=== PATIENT | female | born 1995 | race Caucasian/White ===

== ENCOUNTER → 2018-11-10 14:53 | Outpatient (CLI) | payer MEDICAID, SELFPAY ==
[2018-11-10 13:43] VITALS: BMI 31.9
[2018-11-10 16:48] LABS: Absolute Lymphocyte Count 2.76 X10^3/uL (0.83-4.51); Absolute Neutrophil Count 7.3 X10^3/uL (2.0-7.7); Basophil# 0.03 X10^3/uL; Basophil% 0.3 % (0-1); Eosinophil# 0.04 X10^3/uL; Eosinophils% 0.4 % (0-5); Hematocrit 38.9 % (37-47); Hemoglobin 12.7 g/dL (12.0-15.0); Lymphocyte # 2.76 X10^3/ul (4.0); Lymphocyte % 25.4 % (19-41); Mean Corp Hgb Conc 32.6 g/dL (32-36); Mean Corpuscular Hgb 29.4 pg (27.0-32.0); Mean Platelet Vol. 10.9 fl (6.2-12.0); Monocyte# 0.71 X10^3/uL; Monocyte% 6.5 % (0-10); NRBC Flagged by Analyzer 0 % (0-5); Neutrophil # 7.29 X10^3/uL (2.7-7.7); Neutrophil % 66.9 % (47-70); Platelet Count 270 K/mm3 (150-450); RBC Distribution Width CV 11.9 % (11.6-14.6); RBC Distribution Width SD 39.2 fl (35.1-43.9); Red Blood Count 4.32 M/mm3 (4.2-5.4); White Blood Count 10.9 K/mm3 (4.4-11.0)
[2018-11-10 16:55] LABS: Glucose Challenge Gest 1H 50g 105 mg/dL (70-140)
[2018-11-10 17:02] LABS: Chlamydia Trachomatis by PCR POSITIVE (Negative); Neisserai gonorrhoeae by PCR Negative (Negative); Probe Check PASS; Sample Adequacy Control PASS; Specimen Processing Control PASS
[2018-11-10 17:53] LABS: HIV - WCH Non-Reactive (Nonreactive); Rubella IgG 76.8 IU/mL
[2018-11-15 12:45] LABS: HPV Reflexed? NOT INDICATED
[2018-11-17 02:39] LABS: Rapid Plasmin Reagin (RPR) NONREACTIVE (NONREACTIVE)
== END ==
PROVIDERS: Referring Provider Obstetrics & Gynecology; Visit Provider Obstetrics & Gynecology
DX: Z34.81 Encounter for supervision of other normal pregnancy, first trimester (principal); Z31.430 Encounter of female for testing for genetic disease carrier status for procreative management; Z12.4 Encounter for screening for malignant neoplasm of cervix
CPT/HCPCS: 36415; 82950; 85025; 86592; 86703; 86762; 86850; 86900; 86901; 87086; 87491; 87591; 87624; 88175; G0145

== ENCOUNTER 2018-12-02 20:24 | Emergency (ER) | payer MEDICAID, SELFPAY ==
[2018-11-10 13:43] VITALS: BMI 31.9
[2018-12-02 20:25] VITALS: BP 119/53; PULSE 95; RESP 15; TEMP 36.7; O2SAT 100; BMI 33.7
[2018-12-02] MEDS: Famotidine 20 MG Tablet PO (21:17)
[2018-12-02 21:26] LABS: Absolute Lymphocyte Count 2.36 X10^3/uL (0.83-4.51); Absolute Neutrophil Count 9.9 X10^3/uL (2.0-7.7); Basophil# 0.04 X10^3/uL; Basophil% 0.3 % (0-1); Eosinophil# 0.06 X10^3/uL; Eosinophils% 0.5 % (0-5); Hematocrit 39.4 % (37-47); Hemoglobin 13.2 g/dL (12.0-15.0); Lymphocyte # 2.36 X10^3/ul (4.0); Lymphocyte % 17.9 % (19-41); Mean Corp Hgb Conc 33.5 g/dL (32-36); Mean Corpuscular Hgb 30.1 pg (27.0-32.0); Mean Corpuscular Volume 89.7 fL (81-99); Mean Platelet Vol. 9.9 fl (6.2-12.0); Monocyte# 0.74 X10^3/uL; Monocyte% 5.6 % (0-10); NRBC Flagged by Analyzer 0 % (0-5); Neutrophil # 9.88 X10^3/uL (2.7-7.7); Neutrophil % 75.1 % (47-70); Platelet Count 253 K/mm3 (150-450); RBC Distribution Width CV 11.9 % (11.6-14.6); RBC Distribution Width SD 39.1 fl (35.1-43.9); Red Blood Count 4.39 M/mm3 (4.2-5.4); White Blood Count 13.2 K/mm3 (4.4-11.0)
[2018-12-02 21:28] LABS: Bacteria 0 SEEN /hpf (None Seen); Mucous, Urine 0 SEEN /hpf (<or=2+); Red Blood Cells-Urine 0 SEEN /hpf (0-5); White Blood Cells 0 SEEN /hpf (0-5)
[2018-12-02 21:29] LABS: Color, Urine Yellow (Yellow); Glucose, Dipstick Normal (Normal); Ketone-Dipstick Negative (Negative); Leukocyte Esterase-Dipstick Negative /ul (Negative); Nitrite-Dipstick Negative (Negative); Occult Blood-Urine Negative /ul (Negative); Protein-Dipstick Negative (Negative); Specific Gravity, Urine 1.015 (1.002-1.030); Urine Bilirubin Dipstick Negative (Negative); Urine Clarity Clear (Clear); Urine Urobilinogen Normal (Normal)
[2018-12-02 21:41] LABS: AST(SGOT) 23 U/L (15-37); Alanine Aminotransfer ALT/SGPT 43 U/L (13-56); Albumin, Serum 3.8 g/dL (3.2-5.0); Alkaline Phosphatase 48 U/L (45-117); Anion Gap 7 (5-15); BUN 8 mg/dL (7-18); BUN/Creat Ratio 15.4 RATIO (10-20); Calcium,Total 9.6 mg/dL (8.5-10.1); Chloride 105 mmol/L (98-107); Creatinine, Serum 0.52 mg/dL (0.55-1.02); EST Glomerular Filtration Rate 154 mL/min (>60); Est Glom Filt Rate - Afr Amer 186 mL/min (>60); Estimated Creatinine Clearance 162.23 ml/min; Globulin 3.9 g/dL (2.2-4.2); Glucose 99 mg/dL (74-106); Lipase 84 U/L (73-393); Potassium 3.4 mmol/L (3.5-5.1); Protein, Total 7.7 g/dL (6.4-8.2); Sodium Level 138 mmol/L (136-145)
[2018-12-02 21:42] LABS: Squamous Epithelial Cells - UA 0-5 SEEN /hpf (5-10)
--- NOTE | 2018-12-02 22:59 | ED.VIS.GEN ---
History of Present Illness Chief Complaint: Abd Pain Informant: Patient Onset: Today Context: Sudden Onset Timing: Intermittent Current Severity: Mild Maximum Severity: Severe Narrative: Patient is a 23-year-old female currently 13-1/2 weeks gestation with her first presenting with sudden onset of abdominal pain. Patient states after she had dinner she had sharp pain in her left upper quadrant. Patient denies any radiation. It came and went in waves. Lasting 4-minute at time. Patient states the pain doubled her over. She denies any associated nausea or vomiting. She states her last bowel movement was 2 days ago. She states she has been constipated. She denies any urinary symptoms. She denies any abnormal vaginal bleeding or discharge. Patient was concerned these might be contractions. She states that she had a grilled cheese and apple for dinner. She denies any history of abdominal surgery. She denies any other complaints at this time. She did not take any medications prior to arrival. Past Medical History - Allergies and Home Meds Allergies/Adverse Reactions: Allergies amoxicillin [From Augmentin] Allergy (Mild, Verified 12/02/18 20:29) Unknown clavulanic acid [From Augmentin] Allergy (Mild, Verified 12/02/18 20:29) Unknown Primary Care Physician: Cassie Jamison MD [Primary Care Provider] - Past Medical History: None Surgical History: noncontributory Smoking Status: Never smoker Review of Systems All systems negative except as indicated Gastrointestinal: Reports: Abdominal pain, Constipation Physical Exam Vital Signs/Narrative: Vital Signs Temp Pulse Resp BP Pulse Ox 12/02/18 20:25 98.0 F 95 15 119/53 L 100 General: Well nourished, Well developed, No Acute Distress Head: Normocephalic, Atraumatic Eyes: Perrl, EOMI ENT: Moist mucous membranes, No rhinorrhea Neck: Supple, Nontender Cardiovascular: Regular rate, Regular rhythm, No murmurs Respiratory: No distress, CTA bilaterally, Chest nontender Abdomen: Soft, Nontender, Nondistended, Normal bowel sounds, - - No palpable uterus. Negative for: Guarding Back: Nontender, Normal Inspection. Negative for: CVA tenderness Extremities: Nontender, No edema Skin: Normal color, No rash Neurological: Alert, Oriented x3, Cranial nerves II-XII grossly intact, Normal Strength, Normal Sensation Psychological: Normal affect, Normal Mood Diagnostic/Tx/Re-eval Laboratory Data 12/02/18 12/02/18 12/02/18 21:20 21:20 21:23 WBC 13.2 H RBC 4.39 Hgb 13.2 Hct 39.4 MCV 89.7 MCH 30.1 MCHC 33.5 RDW Std Deviation 39.1 RDW Coeff of Bartolo 11.9 Plt Count 253 MPV 9.9 Immature Gran % (Auto) 0.600 Neut % (Auto) 75.1 H Lymph % (Auto) 17.9 L Kendall % (Auto) 5.6 Eos % (Auto) 0.5 Baso % (Auto) 0.3 Absolute Neuts (auto) 9.9 H Absolute Lymphs (auto) 2.36 Nucleated RBC % 0 Sodium 138 Potassium 3.4 L Chloride 105 Carbon Dioxide 26.0 Anion Gap 7 BUN 8 Creatinine 0.52 L Estim Creat Clear Calc 162.23 Est GFR (MDRD) Af Amer 186 Est GFR (MDRD) Non-Af 154 BUN/Creatinine Ratio 15.4 Glucose 99 Calcium 9.6 Total Bilirubin 0.40 AST 23 ALT 43 Alkaline Phosphatase 48 Total Protein 7.7 Albumin 3.8 Globulin 3.9 Albumin/Globulin Ratio 1.0 Lipase 84 Urine Color Yellow Urine Clarity Clear Urine pH 6.0 Ur Specific [employer] 1.015 Urine Protein Negative Urine Glucose (UA) Normal Urine Ketones Negative Urine Occult Blood Negative Urine Nitrite Negative Urine Bilirubin Negative Urine Urobilinogen Normal Ur Leukocyte Esterase Negative Urine RBC 0 SEEN Urine WBC 0 SEEN Ur Squamous Epith Cells 0-5 SEEN Urine Bacteria 0 SEEN Urine Mucus 0 SEEN - Medical Decision Making She is evaluated for sudden onset of left upper quadrant abdominal pain. She appears nontoxic and in no acute distress. She does not have any pain during my evaluation. Her abdominal exam is benign. CBC, CMP, lipase and UA are all normal. heart tones are not checked as patient is only 13 weeks and still nonviable. She is not complain of any lower abdominal pain or vaginal bleeding. Patient is given a dose of Pepcid in the emergency room. On reevaluation she does have improvement of her symptoms. She continues to have a benign abdominal exam. Patient is counseled that this might be a gastritis, ulcer or gas pains. Patient is encouraged to increase her fluid intake and try prune juice as she has not had a bowel movement in a couple days. In addition she is counseled that she can take either Tums or Mylanta as needed for reflux symptoms. She has an appointment to follow-up with her SIGN LANGUAGE TEACHER, Dr. Bakari Mendieta next week. She is encouraged to keep this. She is counseled on signs and symptoms requiring return to emergency room. Patient discharged home in improved and stable condition. ED Disposition - Plan for ED Patient: Disposition: Home or Assisted Living Diagnosis: Left upper quadrant abdominal pain affecting Instructions: ABDOMINAL PAIN, Unknown Cause, (Female) Referrals: Cassie Jamison MD [Primary Care Provider] - Additional Instructions: Make sure you follow-up with your SIGN LANGUAGE TEACHER. You may take Tums or Maalox as needed. Increase your water and take and try drinking prune juice as needed for constipation. Return to the emergency room if you have worsening or changing symptoms.
[2018-12-02 23:12] VITALS: RESP 16
== END 2018-12-02 23:13 | disposition home or self-care (01) ==
PROVIDERS: Emergency Provider Emergency Medicine; Family Provider Obstetrics & Gynecology; PCP Obstetrics & Gynecology
DX: O26.891 Other specified pregnancy related conditions, first trimester (principal); R10.12 Left upper quadrant pain; Z3A.13 13 weeks gestation of pregnancy
CPT/HCPCS: 80053; 81001; 83690; 85025; 99284; A4216

== ENCOUNTER → 2018-12-07 17:17 | Outpatient (CLI) | payer MEDICAID, SELFPAY ==
[2018-12-07 16:31] VITALS: BMI 33.7
[2018-12-07 21:29] LABS: Chlamydia Trachomatis by PCR Negative (Negative); Neisserai gonorrhoeae by PCR Negative (Negative); Probe Check PASS; Sample Adequacy Control PASS; Specimen Processing Control PASS
[2018-12-11 13:07] LABS: HSV 1 IgG < 0.91 index (0.00-0.90); HSV 2 IgG < 0.91 index (0.00-0.90)
== END ==
PROVIDERS: Referring Provider Obstetrics & Gynecology; Visit Provider Obstetrics & Gynecology
DX: O98.819 Other maternal infectious and parasitic diseases complicating pregnancy, unspecified trimester (principal); A74.9 Chlamydial infection, unspecified
CPT/HCPCS: 36415; 86695; 86696; 87491; 87591

== ENCOUNTER → 2019-01-05 17:04 | Outpatient (CLI) | payer MEDICAID, SELFPAY ==
[2019-01-05 14:50] VITALS: BMI 33.7
== END ==
PROVIDERS: Referring Provider Nurse Practitioner Women's Health; Visit Provider Nurse Practitioner Women's Health
DX: R30.0 Dysuria (principal)
CPT/HCPCS: 87086

== ENCOUNTER → 2019-03-09 14:55 | Outpatient (CLI) | payer MEDICAID, SELFPAY ==
[2019-03-02 10:42] VITALS: BMI 33.7
[2019-03-09 16:23] LABS: Absolute Lymphocyte Count 2.18 X10^3/uL (0.83-4.51); Absolute Neutrophil Count 9.8 X10^3/uL (2.0-7.7); Basophil# 0.03 X10^3/uL; Basophil% 0.2 % (0-1); Eosinophil# 0.14 X10^3/uL; Eosinophils% 1.1 % (0-5); Hematocrit 33.9 % (37-47); Lymphocyte # 2.18 X10^3/ul (4.0); Lymphocyte % 16.6 % (19-41); Mean Corp Hgb Conc 32.4 g/dL (32-36); Mean Corpuscular Hgb 30.1 pg (27.0-32.0); Mean Corpuscular Volume 92.9 fL (81-99); Mean Platelet Vol. 10.5 fl (6.2-12.0); Monocyte# 0.81 X10^3/uL; Monocyte% 6.2 % (0-10); NRBC Flagged by Analyzer 0 % (0-5); Neutrophil # 9.82 X10^3/uL (2.7-7.7); Neutrophil % 74.5 % (47-70); Platelet Count 257 K/mm3 (150-450); RBC Distribution Width CV 12.1 % (11.6-14.6); RBC Distribution Width SD 41.4 fl (35.1-43.9); Red Blood Count 3.65 M/mm3 (4.2-5.4); White Blood Count 13.2 K/mm3 (4.4-11.0)
[2019-03-09 16:48] LABS: Glucose Challenge Gest 1H 50g 90 mg/dL (70-140)
[2019-03-12 10:29] LABS: Hepatitis B Surface Antigen Non-Reactive (Nonreactive); Hepatitis C Antibody Non-Reactive (Nonreactive)
== END ==
PROVIDERS: Referring Provider Obstetrics & Gynecology; Visit Provider Obstetrics & Gynecology
DX: Z34.02 Encounter for supervision of normal first pregnancy, second trimester (principal)
CPT/HCPCS: 36415; 82950; 85025; 86803; 87340

== ENCOUNTER → 2019-05-11 17:51 | Outpatient (CLI) | payer MEDICAID, SELFPAY ==
[2019-05-11 15:36] VITALS: BMI 33.7
[2019-05-11 20:00] LABS: Chlamydia Trachomatis by PCR Negative (Negative); Neisserai gonorrhoeae by PCR Negative (Negative)
[2019-05-11 20:01] LABS: Probe Check PASS; Sample Adequacy Control PASS; Specimen Processing Control PASS
== END ==
PROVIDERS: Visit Provider Obstetrics & Gynecology
DX: O98.819 Other maternal infectious and parasitic diseases complicating pregnancy, unspecified trimester (principal); A74.9 Chlamydial infection, unspecified; Z3A.00 Weeks of gestation of pregnancy not specified
CPT/HCPCS: 87081; 87491; 87591

== ENCOUNTER 2019-05-15 21:52 | Outpatient (CLI) | payer MEDICAID, SELFPAY ==
[2019-05-11 15:36] VITALS: BMI 33.7
[2019-05-15 22:03] VITALS: BP 125/63; PULSE 78
[2019-05-15 22:05] VITALS: TEMP 37
[2019-05-15 22:24] VITALS: BMI 40.3
[2019-05-15 22:42] VITALS: PULSE 74; O2SAT 96
[2019-05-15 22:45] LABS: Color, Urine Yellow (Yellow); Glucose, Dipstick Normal (Normal); Ketone-Dipstick Negative (Negative); Leukocyte Esterase-Dipstick Negative /ul (Negative); Nitrite-Dipstick Negative (Negative); Occult Blood-Urine 25 /ul (Negative); Protein-Dipstick Negative (Negative); Specific Gravity, Urine 1.015 (1.002-1.030); Urine Bilirubin Dipstick Negative (Negative); Urine Clarity Clear (Clear); Urine Urobilinogen Normal (Normal); Urine pH 6.5 (5.0 - 8.0)
[2019-05-15 22:45] LABS: ROM Internal Control Test YES-OK TO RESULT pt. (Internal QC); ROM Patient Test Negative (Negative)
[2019-05-15 22:56] LABS: Color, Urine Yellow (Yellow); Glucose, Dipstick Normal (Normal); Mucous, Urine 0 SEEN /hpf (<or=2+); Urine Bilirubin Dipstick Negative (Negative); Urine Clarity Clear (Clear); White Blood Cells 0 SEEN /hpf (0-5)
[2019-05-15 22:57] LABS: Ketone-Dipstick Negative (Negative); Leukocyte Esterase-Dipstick Negative /ul (Negative); Nitrite-Dipstick Negative (Negative); Occult Blood-Urine 25 /ul (Negative); Protein-Dipstick Negative (Negative); Specific Gravity, Urine 1.015 (1.002-1.030); Urine Urobilinogen Normal (Normal); Urine pH 6.5 (5.0 - 8.0)
[2019-05-15 23:01] LABS: Bacteria RARE /hpf (None Seen); Red Blood Cells-Urine 0-5 SEEN /hpf (0-5); Squamous Epithelial Cells - UA 0-5 SEEN /hpf (5-10)
--- NOTE | 2019-05-16 13:05 | OB.TRI.PN ---
Progress Notes Date of Service: 05/16/19 Progress Note: FHT: 140 Moderate variability reactive no decelerations category I tracing Smoke Rise: no regular Contractions patient presents for questionable ROM, false labor dc home fu as scheduled Laboratory Studies: Laboratory Tests 05/15/19 05/15/19 05/15/19 Range/Units 22:35 22:35 22:15 Urine Color Yellow Yellow (Yellow) Urine Clarity Clear Clear (Clear) Urine pH 6.5 6.5 (5.0 - 8.0) Ur Specific [place] 1.015 1.015 (1.002-1.030) Urine Protein Negative Negative (Negative) mg/dl Urine Glucose (UA) Normal Normal (Normal) mg/dl Urine Ketones Negative Negative (Negative) mg/dl Urine Occult Blood 25 H 25 H (Negative) /ul Urine Nitrite Negative Negative (Negative) Urine Bilirubin Negative Negative (Negative) mg/dL Urine Urobilinogen Normal Normal (Normal) mg/dl Ur Leukocyte Esterase Negative Negative (Negative) /ul Urine RBC 0-5 SEEN (0-5) /hpf Urine WBC 0 SEEN (0-5) /hpf Ur Squamous Epith Cells 0-5 SEEN (5-10) /hpf Urine Bacteria RARE (None Seen) /hpf Urine Mucus 0 SEEN (<or=2+) /hpf Vag Amniotic Fld Detect Negative (Negative) Multi Select Codes - Urinary/Genital Urinary/Genital CPT Codes: 85563-69 non-stress test Interp
== END 2019-05-15 23:11 | disposition home or self-care (01) ==
LOC: WPOUT 21:55 → OBT 21:56
PROVIDERS: Visit Provider Obstetrics & Gynecology
DX: O47.9 False labor, unspecified (principal); Z3A.00 Weeks of gestation of pregnancy not specified
CPT/HCPCS: 59025; 59050; 81001; 81002; 84112; 94760; 99218; G0378

== ENCOUNTER 2019-05-30 05:20 | Inpatient (IN) | payer MEDICAID, SELFPAY ==
[2019-04-23 14:54] VITALS: BMI 33.7
[2019-05-24 14:08] VITALS: BMI 40.3
[2019-05-29 23:56] VITALS: BMI 40.3
[2019-05-30] VITALS (60 sets, daily range): BP systolic 107–129; BP diastolic 55–84; PULSE 65–126; TEMP 36.2–37.6; O2SAT 93–100
[2019-05-30] MEDS: Lactated Ringers 1,000 ML 999 ML IV (03:15)
[2019-05-30 03:26] LABS: Absolute Lymphocyte Count 3.01 X10^3/uL (0.83-4.51); Absolute Neutrophil Count 9.8 X10^3/uL (2.0-7.7); Basophil# 0.04 X10^3/uL; Basophil% 0.3 % (0-1); Eosinophil# 0.07 X10^3/uL; Eosinophils% 0.5 % (0-5); Hematocrit 37.1 % (37-47); Hemoglobin 12.2 g/dL (12.0-15.0); Lymphocyte # 3.01 X10^3/ul (4.0); Lymphocyte % 21.5 % (19-41); Mean Corp Hgb Conc 32.9 g/dL (32-36); Mean Corpuscular Hgb 30.3 pg (27.0-32.0); Mean Corpuscular Volume 92.1 fL (81-99); Mean Platelet Vol. 10.6 fl (6.2-12.0); Monocyte% 6.4 % (0-10); NRBC Flagged by Analyzer 0 % (0-5); Neutrophil # 9.84 X10^3/uL (2.7-7.7); Neutrophil % 70.2 % (47-70); Platelet Count 235 K/mm3 (150-450); RBC Distribution Width CV 13.2 % (11.6-14.6); RBC Distribution Width SD 43.8 fl (35.1-43.9); Red Blood Count 4.03 M/mm3 (4.2-5.4)
[2019-05-30] MEDS: Lactated Ringers 1,000 ML 50 ML IV (06:30)
[2019-05-30] MEDS: Oxytocin 30 units/NS 500 ml 30 UNITS/500 ML IV.SOLN IV (06:30)
[2019-05-30] MEDS: Lactated Ringers 500 ML 999 ML IV ×2 (08:55→14:40)
[2019-05-30] MEDS: fentaNYL-bupivacaine (epidural) 100 ML BAG EPIDURAL ×3 (09:51→19:04)
[2019-05-30] MEDS: Lactated Ringers 1,000 ML 200 ML IV ×2 (12:47→18:16)
[2019-05-30] MEDS: Oxytocin 30 units/NS 500 ml 30 UNITS/500 ML IV.SOLN 334 UNITS IV (20:18)
--- NOTE | 2019-05-30 20:40 | HP.PCM_ITS ---
- Problem List (1) Low grade squamous intraepithelial lesion (LGSIL) Status: Acute Comment: repeat pap at [facility] (2) Chlamydia infection affecting Status: Acute Comment: treated 11/14/18. JACKY neg. (3) Depression affecting Status: Acute Comment: zoloft 100mg, refer for counseling. (4) Obesity affecting Status: Acute Qualifiers: Comment: 1 hour glucola given at NOB, healthy weight ggain encouraged (5) Supervision of normal Status: Acute Qualifiers: Comment: PRR RAMON 06/06/2019 girl Arilynn FOB not involved (6) Status: Acute Qualifiers: Comment: NIPT-low risk and Carrier- negative. declined afp. anatomy US normal History Date of Admission: 05/30/19 Final RAMON: 06/06/19 Gestational age: 39 Weeks and 0 Days History of this : This is a 23 year-old, G 1P0, at 39 weeks gestational age presents in early transitional labor. She had questionable late decelerations and therefore the decision was made to keep and induce/augment labor. She admits regular contractions with no vaginal bleeding or loss of fluid and admits good movement. Medical History: Medical History (Last Reviewed 05/24/19 @ 14:07 by Elham Gutierrez) Boil of buttock L02.32 Surgical History: Surgical History (Last Reviewed 05/24/19 @ 14:07 by Elham Gutierrez) Hx of appendectomy Z90.49 Allergies amoxicillin [From Augmentin] Allergy (Mild, Verified 05/24/19 14:07) Rash clavulanic acid [From Augmentin] Allergy (Mild, Verified 05/24/19 14:07) Rash Home Medications: Home Medications vitamin no.76-iron,carbonyl 29 mg iron-folic acid 1 mg tablet 1 tab PO DAILY 11/10/18 Sertraline HCl [Zoloft] 100 mg PO QDAY 05/15/19 Smoking Status: Former smoker Alcohol: None Number of Fetus(es): 1 NST - FHR Rate Baby A Baseline: 130 Variability:: Moderate Accelerations:: 15 x 15 Decelerations:: Early, Late NST Reactive:: Yes FHR Category:: Category II Uterine Activity:: q 2-5 History Past Pregnancies: Past Pregnancies Delivery Date Name GA/ Weeks Outcome Route Wt Sex Labor Length Anesthesia Delivery Location Provider FOB Labs: Mom's Labs & Results 05/30/19 05/30/19 00:31 00:31 WBC 14.0 H RBC 4.03 L Hgb 12.2 Hct 37.1 MCV 92.1 MCH 30.3 MCHC 32.9 RDW Std Deviation 43.8 RDW Coeff of Bartolo 13.2 Plt Count 235 MPV 10.6 Immature Gran % (Auto) 1.100 H Neut % (Auto) 70.2 H Lymph % (Auto) 21.5 Carter % (Auto) 6.4 Eos % (Auto) 0.5 Baso % (Auto) 0.3 Absolute Neuts (auto) 9.8 H Absolute Lymphs (auto) 3.01 Nucleated RBC % 0 Blood Type A POSITIVE Antibody Screen NEGATIVE Course Did the patient receive Yes care? Labs Blood Type: A RH: POSITIVE RPR/VDRL/Syphilis Nonreactive Rubella status Immune HbSAg Negative Date Done: 03/09/19 Chlamydia Negative Gonorrhea Negative HIV/AIDS Non-Reactive Group B Strep: Negative Current Obstetrical History Gestational Diabetes No Incompetent Cervix No Infertility No IUGR No Macrosomia No Hypertension/Pre-eclampsia No Placenta Previa/Abruption No PTL/PROM No Uterine anomaly No Oligohydramnios No Polyhydramnios No Multiple gestation No Past Medical History Asthma No Diabetes No Hypertension No Heart disease No Mitral valve prolapse No Neurologic/Seizure disorder/ No: chronic headaches Migraines Kidney disease No Liver disease No Varicosities No Clotting disorders/Hx of DVT No Thyroid Dysfunction No Other medical diseases No Psychiatric disorders Yes: depression-on zoloft Major trauma No Abnormal PAP smear Yes: one abnormal with first OB apt, plan to follow up after delivery Sleep apnea No Mammogram in the last 2 years No Social History Marital Status: SINGLE Alleged father [employer] [place] Hx Smoking Yes Smoking Status Former smoker How long have you used n/a substances (years)? What date/time did you last n/a use any of the above? Have you had any previous n/a inpatient or outpatient treatment Expected Delivery Method: Spontaneous Vaginal Review of Systems Constitutional: Denies: Fever, Malaise Eyes: Denies: Blurred vision, Vision Change HEENT: Denies: Head Aches, Visual Changes Cardiovascular: Denies: Chest Pain, Palpitations Respiratory: Denies: Cough, Shortness of Breath, Wheezing Gastrointestinal: Denies: Abdominal Pain, Diarrhea, Nausea, Vomiting Genitourinary: Denies: Dysuria, Hematuria Musculoskeletal: Denies: Joint Pain, Muscle pain Skin: Denies: Lesions, Rash Neurological: Denies: Blurred vision, Focal weakness, Headaches Psychiatric: Denies: Anxiety, Depression Endocrine: Denies: Heat/ Cold Intolerance Hematologic/ Lymphatic: Denies: Easy Bruising, Easy Bleeding Physical Exam Vitals: Vital Signs Temp Pulse BP Pulse Ox 99.6 F H 100 120/58 L 94 05/30/19 19:15 05/30/19 20:38 05/30/19 20:38 05/30/19 20:32 General: Alert, Cooperative, No apparent distress HEENT: Atraumatic, Normocephalic. Negative for: Thyromegaly, Lymphadenopathy Cardiovascular: Regular rate Lungs: Normal air movement Abdomen: Soft, Non Tender, Gravid Neurological: Deep Tendon Reflexes 2+/4 and Symmetrical, Neuro grossly intact. Negative for: Clonus NETWORK APPLICATIONS SPECIALIST: Normal external genitalia. Negative for: Vulvar lesions Estimated gestational size: Appropriate for gestational size Presentation: Cephalic Cervix Dilation (cm): 3 Station: -2 Effacement (%): 60 Assessment/Plan All Active Problems (Last Reviewed 05/24/19 @ 14:07 by Elham Gutierrez) Low grade squamous intraepithelial lesion (LGSIL) (Acute) Chlamydia infection affecting (Acute) Depression affecting (Acute) Obesity affecting (Acute) Supervision of normal (Acute) (Acute) This is a 23 year-old, at 39 weeks gestational age presents in transitional labor with cat II tracing plan pitocin augmentation, arom clear fluid for 39 weeks and cat II tracing epi PRN gbs neg.
--- NOTE | 2019-05-30 20:45 | PCM.OPRPT ---
Problem List (1) Low grade squamous intraepithelial lesion (LGSIL) Status: Acute Comment: repeat pap at PP (2) Chlamydia infection affecting Status: Acute Comment: treated 11/14/18. JACKY neg. (3) Depression affecting Status: Acute Comment: zoloft 100mg, refer for counseling. (4) Obesity affecting Status: Acute Qualifiers: Comment: 1 hour glucola given at NOB, healthy weight ggain encouraged (5) Supervision of normal Status: Acute Qualifiers: Comment: PRR RAMON 06/06/2019 girl Aria FOB not involved (6) Status: Acute Qualifiers: Comment: NIPT-low risk and Carrier- negative. declined afp. anatomy US normal Vaginal Delivery Maternal Presentation: Active Labor, Medically Indicated Induction transitional labor 39 weeks 3-4 cm and cat II tracing Method of Induction: Pitocin Amniotic Membrane Rupture Type: Artificial Amniotic Fluid Description: Clear Final RAMON: 06/06/19 Gestational age: 39 Weeks and 0 Days Date of Procedure: 05/30/19 Pre-Operative Diagnosis: early labor cat II tracing Post-Operative Diagnosis: same Surgery/ Procedure Performed: Spontaneous Vaginal Delivery Type of Anesthesia: Epidural, Local with 1% lidocaine Description of Procedure: Patient began pushing and she was uncomfortable with the epidural so local lidocaine was infected. she continued pushing and delivered the head in the [MARGARITA] presentation. The head was delivered atraumatically . The anterior and posterior shoulders delivered without complication followed by the rest of the infant and the infant was placed on the maternal abdomen. Delayed cord clamping was employed for approximately 60 seconds. Cord was clamped and cut and gentle traction was applied to the cord and the placenta delivered spontaneously immediately following it was noted to be intact with three-vessel cord. The perineum and vagina were inspected and noted to have a small first-degree perineal laceration that was repaired in the usual fashion with 3-0 Vicryl Rapide. EBL was 150 cc. Patient and infant tolerated delivery well. Presentation: MARGARITA Placental Delivery Description: Spontaneous Placenta Disposition: [facility] Cord Vessel Description: 3 Vessels Cord Entanglement: None Estimated Blood Loss: 150 Infant A gender: Female Episiotomy Description: None Laceration: Perineal Extension/lac, 1st degree Medications given after delivery: IV Pitocin Complications: None Multi Select Codes - Urinary/Genital Urinary/Genital CPT Codes: 18244 Vaginal Delivery global pkg
[2019-05-30] MEDS: Naproxen 250 MG Tablet 500 MG PO (21:36)
[2019-05-31] VITALS: BP 109/61; PULSE 87; RESP 18; TEMP 36.9
[2019-05-31 09:30] VITALS: BP 116/72; PULSE 88; RESP 16; TEMP 36.6
[2019-05-31] MEDS: Sertraline 100 MG Tablet PO (09:55)
[2019-05-31] MEDS: Naproxen 250 MG Tablet 500 MG PO (09:56)
[2019-05-31] MEDS: Acetaminophen 500 MG Tablet 1000 MG PO (10:42)
[2019-05-31 12:00] VITALS: BP 130/74; PULSE 90; RESP 18; TEMP 36.6
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
[2019-05-31 16:00] VITALS: BP 112/70; PULSE 78; RESP 15; TEMP 36.4
[2019-05-31 20:30] VITALS: BP 129/60; PULSE 84; RESP 16; TEMP 36.7
[2019-05-31] MEDS: Senna/Docusate Sodium 1 Tablet PO (20:35)
[2019-06-01 02:00] VITALS: BP 115/69; PULSE 74; RESP 16; TEMP 36.4
--- NOTE | 2019-06-01 03:53 | DCINST_ITS ---
Discharge Diet: No Restrictions Discharge Activity: Return to Normal Activity, May not drive while taking narcotic pain medications., May Shower May resume sexual activity in: 4-6 weeks Call your doctor if your incision/area has: Continuous Slow Oozing, Sudden Increased Bleeding, Increased Pain/ Swelling, Increased Redness, Foul Smelling Discharge Additional Instructions: If you experience any of the following, contact your healthcare provider. * Bleeding that soaks a pad every hour for 2 hours * Fever 100.4 or higher * Unrelieved incision or abdominal pain * Swelling, redness, discharge or bleeding from your incision or episiotomy site * Your incision begins to separate * Problems urinating (including inability to urinate or burning while urinating). * Visual changes * Severe headache * Flu-like symptoms * Pain or redness in one of both of your breasts * Pain, warmth, tenderness or swelling in your legs, especially the calf area * Frequent nausea and vomiting * Symptoms of depression or anxiety If you experience any of the following, call 911 or go to the nearest Emergency Room. * Chest pain * Problems breathing * Seizure activity * Partial or complete paralysis of a body part, slurred speech, weakness or drooping of the face, or a sudden inability to walk or hold your balance Allergies/Adverse Reactions: Allergies amoxicillin [From Augmentin] Allergy (Mild, Verified 05/24/19 14:07) Rash clavulanic acid [From Augmentin] Allergy (Mild, Verified 05/24/19 14:07) Rash Medications to take at Discharge vitamin no.76-iron,carbonyl 29 mg iron-folic acid 1 mg tablet 1 tab PO DAILY 11/10/18 Sertraline HCl [Zoloft] 100 mg PO QDAY 05/15/19 Please Follow Up With: Cassie Jamison MD - [phone] When: Call to make an appointment with your doctor in 6 weeks. If you had elevated Blood pressure or 4th degree laceration you will need to be seen in 2 weeks. Primary Care Physician: Care Physician,No Primary [Primary Care Provider] - Test Results: Test results from this visit will be discussed in further detail at your follow- up appointment, if applicable.
--- NOTE | 2019-06-01 03:54 | PCM.PN.OB ---
Subjective: late entry- patient seen 05/31/19 at 1700 doing well no complaints pain controlled no CP SOB N V ambulating well tolerating po lochia moderate, going well - Physical Exam Vitals/I&O's: Vital Signs Temp Pulse Resp BP Pulse Ox 97.5 F L 74 16 115/69 94 06/01/19 02:00 06/01/19 02:00 06/01/19 02:00 06/01/19 02:00 05/30/19 20:32 Oxygen Delivery Method Room Air Weight: 257 lb 9.6 oz Body Mass Index (BMI) 40.3 Intake and Output for Last 24 Hours 05/30/19 05/31/19 06/01/19 23:59 23:59 23:59 Intake Total 5367.13 / 5367.13 Output Total 2900 / 2900 Balance 2467.13 / 2467.13 General: Alert, Oriented x3 Current Medications Acetaminophen (Tylenol) 1,000 mg PO Q8H PRN PRN PRN Reason: Pain Score 1-3/10 Last Admin: 05/31/19 10:42 Dose: 1,000 mg Documented by: Bisacodyl (Dulcolax) 10 mg RECTAL UD PRN PRN Reason: If no BM Dibucaine (Dibucaine) 1 applic TOPICAL TID PRN PRN; Protocol PRN Reason: Discomfort Hydrocortisone (Hytone) 1 applic TOPICAL TID PRN PRN; Protocol PRN Reason: Discomfort Methylergonovine Maleate (Methergine) 0.2 mg IM X1 PRN PRN Reason: Excess bleeding/uterine atony Naproxen (Naprosyn) 500 mg PO Q8H PRN PRN PRN Reason: Pain Score 1-3/10 Last Admin: 05/31/19 09:56 Dose: 500 mg Documented by: Ondansetron HCl (Zofran) 4 mg IV Q4H PRN PRN PRN Reason: Nausea Oxycodone HCl (Oxyir) 5 - 10 mg PO Q4H PRN PRN PRN Reason: Pain Score 4-10/10 Senna/Docusate Sodium (Senokot-S, Yolanda-Colace) 1 - 2 tablet PO DAILY PRN PRN PRN Reason: Constipation Last Admin: 05/31/19 20:35 Dose: 2 tablet Documented by: Sertraline HCl (Zoloft) 100 mg PO DAILY JESUS Last Admin: 05/31/19 09:55 Dose: 100 mg Documented by: Simethicone (Mylicon) [address] [facility] PRN PRN Reason: Indigestion/Stomach pain Sodium Chloride () 5 - 15 ml IV UD PRN PRN Reason: SALINE FLUSH Medical Necessity - Tobacco Use Smoking Status: Former smoker Assessment/Plan All Active Problems (Last Reviewed 05/24/19 @ 14:07 by Elham Gutierrez) Low grade squamous intraepithelial lesion (LGSIL) (Acute) Chlamydia infection affecting (Acute) Depression affecting (Acute) Obesity affecting (Acute) Supervision of normal (Acute) (Acute) s/p PPD # 1 1. routine post delivery care 2. breast feeding- support given 3. rh positive 4. rubella immune
[2019-06-01 08:00] VITALS: BP 105/56; PULSE 67; RESP 16; TEMP 36.4
--- NOTE | 2019-06-01 08:25 | NURSING ---
Patient report of no BM since delivery.
[2019-06-01] MEDS: Sertraline 100 MG Tablet PO (09:43)
[2019-06-01 12:01] VITALS: BP 105/53; PULSE 86; RESP 16; TEMP 36.5
== END 2019-06-01 12:55 | disposition home or self-care (01) | DRG 560 ==
LOC: WPOUT 05:26 → WP 05:26
PROVIDERS: Admitting Provider Obstetrics & Gynecology; Visit Provider Obstetrics & Gynecology
DX: O76 Abnormality in fetal heart rate and rhythm complicating labor and delivery (principal); O99.344 Other mental disorders complicating childbirth; F32.9 Major depressive disorder, single episode, unspecified; E66.9 Obesity, unspecified; O99.214 Obesity complicating childbirth; Z3A.39 39 weeks gestation of pregnancy; Z37.0 Single live birth; Z87.891 Personal history of nicotine dependence; Z90.49 Acquired absence of other specified parts of digestive tract
CPT/HCPCS: 36415; 59025; 59050; 85025; 86850; 86900; 86901; 94760; 99218; J7120; G0378

== ENCOUNTER → 2019-07-18 13:16 | Outpatient (CLI) | payer MEDICAID, SELFPAY ==
[2019-07-18 10:20] VITALS: BMI 40.3
[2019-07-20 00:51] LABS: HPV Reflexed? NOT INDICATED
== END ==
PROVIDERS: Visit Provider Obstetrics & Gynecology
DX: Z12.4 Encounter for screening for malignant neoplasm of cervix (principal)
CPT/HCPCS: 88175; G0145

== ENCOUNTER → 2019-08-08 | Outpatient (CLI) | payer MEDICAID, SELFPAY ==
--- NOTE | 2019-08-08 | IMM_PTH ---
PATIENT: MATEO THOMAS LOC: [facility] U#:[id number] AGE/SX: 23/F ROOM: RE08/08/[address]: Dr. Cassie Jamison MD : 1995 BED: DIS: 08/08/2019 SPEC #: [id number] RECD: 08/10/19 10:49 STATUS: CHACHO REIron #: [id number] SHEA: 08/08/19 00:[address]: Cassie Jaimson DEPT: IMMUNOHISTOCHEMISTRY RECD BY: Michelle Hogan ENTERED: 08/10/19 10:50 SP TYPE: IMMUNO OTHR DR: No Primary Care Phys Tissues: B - Uterine cervix, NOS Procedures: p16 (initial) KI-67 (add) PHYSICIAN & INSTITUTION [place] [id number] SPECIMEN INFORMATION: Tissue Source: B - Cervix at 5 o'clock Clinical Info: HGSIL Specimen Number: [id number] CPT code: 71954, 19727 METHODOLOGY: Deparaffinized sections of prefer/formalin-fixed tissue or PAP/DQ stained slides are incubated with monoclonal/polyclonal antibodies/oligonucleotide probes. Localization is made via biotin free immunoperoxidase method. Appropriate controls are performed and reacted as expected. Results on target cell population are indicated in the following table: RESULTS: ANTIBODY / CLONE RESULT Block B P16 (E6H4) positive, focal block staining Ki-67 (30-9) positive, moderate These tests were developed and their performance characteristics determined by [facility]. They may not have been cleared or approved by the U.S. Food and Drug Administration. The FDA has determined that such clearance or approval is not necessary. The above immunohistochemical/dualISH markers are ordered and reviewed by the Pathologist. INTERPRETATION: B. Cervix at 5 o'clock, biopsy: Focal moderate squamous dysplasia. SJ:princess 08/13/19
--- NOTE | 2019-08-08 | ECC_PTH ---
PATIENT: MATEO THOMAS LOC: [facility] #:[id number] AGE/SX: 23/F ROOM: RE08/08/[address]: Dr. Cassie Jamison MD : 1995 BED: DIS: 08/08/2019 SPEC #: [id number] RECD: 08/08/19 15:04 STATUS: CHACHO FIONA #: [id number] SHEA: 08/08/19 00:[address]: Cassie Jamison DEPT: SURGICAL PATHOLOGY RECD BY: Jorge Thomas ENTERED: 08/09/19 08:13 SP TYPE: ECC LEXY DR: Alexandra Primary Care Phys Tissues: A - Endocervical B - Endocervical Procedures: Surgery Specimen Level IV HEADER OPERATION: Colposcopy PRE-OP DIAGNOSIS: HGSIL TISSUE SUBMITTED: A - ECC, B - 5 o'clock MICROSCOPIC DIAGNOSIS A. ECC: Scant fragments of benign endocervical epithelium. Negative for dysplasia. B. Cervix, 5 o'clock, biopsy: Mild and focal moderate squamous dysplasia with HPV changes. Mild chronic inflammation. See comment. JOSUÉ:princess 08/10/19 COMMENT B. Immunohistochemistry ([id number]) for surrogate HPV marker (p16) supports the above diagnosis. Case has been reviewed in consultation with Dr. Marin who concurs with the above diagnosis. IDC:AM MICROSCOPIC DESCRIPTION Slides are reviewed. GROSS DESCRIPTION A - Received in fixative is one container labeled with the patient's name and designated ECC. The specimen consists of a scant amount of soft tissue. The specimen is totally submitted for cell block preparation. B - Received in fixative is one container labeled with the patient's name and designated 5 o'clock. The specimen consists of one irregular fragment of light campbell soft tissue that measures 0.3 x 0.2 x 0.1 cm. The specimen is totally submitted in one cassette. / JOSUÉ:princess 08/09/19 TC:5 CPT: 85142 x2
[2019-08-08 10:01] VITALS: BMI 38.9
== END | disposition home or self-care (01) ==
LOC: LABSPEC 15:50
PROVIDERS: Referring Provider Obstetrics & Gynecology; Visit Provider Obstetrics & Gynecology
DX: N87.0 Mild cervical dysplasia (principal)
CPT/HCPCS: 88305; 88341; 88342

== ENCOUNTER 2019-08-28 09:54 | Day surgery (SDC) | payer MEDICAID, SELFPAY ==
[2019-08-08 10:01] VITALS: BMI 38.9
--- NOTE | 2019-08-27 17:13 | HP.PCM_ITS ---
- Problem List (1) Chlamydia infection affecting Status: Acute Comment: treated 11/14/18. JACKY neg. (2) Depression affecting Status: Acute Comment: zoloft 100mg, refer for counseling. (3) High grade squamous intraepithelial lesion (HGSIL) on cytologic smear of cervix Status: Acute Comment: colp scheduled 08/07. biopsies done plan LEEP (4) Low grade squamous intraepithelial lesion (LGSIL) Status: Acute Comment: repeat pap at [facility] (5) Obesity affecting Status: Acute Qualifiers: Comment: 1 hour glucola given at [facility], healthy weight ggain encouraged (6) Status: Acute Qualifiers: Comment: NIPT-low risk and Carrier- negative. declined afp. anatomy US normal (7) Supervision of normal Status: Acute Qualifiers: Comment: PRR RAMON 06/06/2019 girl Susi FO not involved History and Physical Date of Admission: 08/28/19 Intake Vital Signs 08/08/19 Height 5 ft 7.5 in 08/08/19 Weight: 252 lb 08/08/19 BP 108/74 Intake Visit Reasons: high grade Chief Complaint: HGSIL COLPOSCOPY Power Washer Required: No Is patient in pain?: No Allergies amoxicillin [From Augmentin] Allergy (Mild, Verified 08/08/19 10:01) Rash clavulanic acid [From Augmentin] Allergy (Mild, Verified 08/08/19 10:01) Rash Medications Sertraline HCl [Zoloft] 100 mg PO QDAY 05/15/19 [History Confirmed 08/08/19] Is last menstrual period known: No Post menopausal: No Patient : No : No PFSH PFSH Medical History Boil of buttock (Acute) Surgical History Hx of appendectomy (Acute) Family History Father Hypertension Heart disease Diabetes Social History (Updated 08/08/19 @ 10:[address] Cassie Jamison MD) adopted: No household members: family housing: house current occupational status: unemployed pets and animals: Yes history of recent travel: No sexually active: Yes Smoking Status: Former smoker second hand exposure: No alcohol intake: current details: not while substance use type: does not use seatbelt use: never do you feel safe at home: Yes Pregancy History 1 Elective abortions Hx Para 1 Spontaneous abortions Hx # Term Pregnancies Ectopic pregnancies Hx # Pregnancies Multiple births # of living children 1 Past Pregnancies Del. Date Name GA/Weeks Outcome Route Bth Weight Infant Gen [facility] 05/30/19 Moises 39 live - full term NS VD Female epidural [facility]N Delivery Date: 05/30/19 On 05/31/19 @ 11:29 Jenny,Emily EPI W/LIDO 1%; CAT 2 TRACING HPI high grade: Details: MATEO THOMAS is a 23 year old who presents for LEEP secondary to JACE III ROS Const Constitutional: Reports system reviewed and no additional complaints, except as docu; denies chills, fever(s), weight gain or weight loss GI GI: Reports as per HPI; denies abdominal pain, bloating, constipation, cramping, nausea or vomiting : Reports as per HPI; denies urinary frequency, urinary incontinence, urinary urgency, vaginal discharge or vaginal dryness Other systems reviewed and negative Exam Const General: cooperative, healthy appearing, comfortable, well developed Orientation: alert HENMT Head: normal to inspection No thyromegaly or lymphadenopathy Cardiovascular Regular rate and rhythm Resp Effort & Inspection: normal respiratory effort clear to auscultation bilaterally GI Inspection: normal to inspection, non-distended Palpation: soft, no hepatosplenomegaly, no guarding External Female Exam: normal external appearance, normal appearance of the urethra Urethra: normal appearance of the urethra Speculum Exam - Vagina: normal appearance of the vagina, normal vaginal discharge, no lesions Office Procedures Colposcopy Colposcopy Reason for colposcopy: LSIL, HSIL Consent Signed: Yes Time out performed: Yes Time: 10:42 Acetowhite epithelium (cervix): widespread Punctation (cervix): 5 o'clock Mosaicism (cervix): 5 o'clock Abnormal vessels (cervix): none Biopsies (cervix): 5 o'clock Acetowhite epithelium (vagina): none Punctation (vagina): none Mosaicism (vagina): none Biopsies (vagina): none Cervix+upper/adj vag+bx cervix+ECC: Yes Results Office , Urine Office , Urine Negative Last Edit by April Wong on 08/08/19 10:10 Assessment & Plan Problems 1. High grade squamous intraepithelial lesion (HGSIL) on cytologic smear of cervix R87.613 colp scheduled 08/07. biopsies done plan LEEP Plan Problem list updated and treatment plans were reviewed with the patient and relevant educational handouts given. See problem list details for specific plan information. After discussing the patient's diagnosis and treatment plan options, patient wishes to proceed with surgical management. I have discussed with the patient the risks, benefits, and alternatives of the procedure which include but are not limited to risks of anesthesia, bleeding, infection, possible damage to bowel, bladder, or surrounding vasculature which could lead to additional surgery to evaluate any complications. Patient agrees to procedure and wishes to proceed. ACOG/uptodate references given for additional information regarding procedure. Orders Orders: Colposcopy Today R87.613 POC Urine Today N92.6 Coding Level of Care Code No Charge Diagnoses High grade squamous intraepithelial lesion (HGSIL) on cytologic smear of cervix R87.613 Additional Codes Colposcopy - Cervix+upper/adj vag+bx cervix+ECC: Yes (50006) UPDATE- I have seen the patient and performed any clinically relevant updates to the history and physical exam. Cassie Jamison MD
[2019-08-28] VITALS (8 sets, daily range): BP systolic 89–117; BP diastolic 59–76; PULSE 51–69; RESP 14–16; TEMP 36.3–36.6; O2SAT 97–100; BMI 38.5
--- NOTE | 2019-08-28 | ECC_PTH ---
PATIENT: SALUD THOMAS [place]: [facility] [place][id number] AGE/SX: 23/ ROOM: RE08/28/[address]: Dr. Cassie Jamison MD : 1995 BED: DIS: 08/28/2019 SPEC #: [id number] RECD: 08/28/19 09:45 STATUS: CHACHO FIONA #: [id number] SHEA: 08/28/19 00:[address]: Cassie Jamison DEPT: SURGICAL PATHOLOGY RECD BY: Tray Chappell ENTERED: 08/29/19 09:45 SP TYPE: ECC OT DR: Dr. Salud Ramírez MD Tissues: A - Endocervical B - Endocervical Procedures: Surgery Specimen Level IV Surgery Specimen Level V HEADER OPERATION: LEEP cone PRE-OP DIAGNOSIS: HGSIL TISSUE SUBMITTED: A - Endocervical curettings, B - Cervix from LEEP MICROSCOPIC DIAGNOSIS A. Endocervix, curettings: Fragments of benign endocervical tissue with minimal chronic inflammation. B. Cervix, LEEP conization. Focal mild to moderate squamous dysplasia, JACE I-II (HSIL). Changes consistent with HPV cytopathic effect. Mild chronic inflammation. See comment. AM:princess 08/30/19 COMMENT B. Moderate squamous dysplasia is noted at the cauterized edge of the endocervical margin. Clinical correlation is suggested. Results from immunohistochemistry ([id number]) for surrogate HPV marker (p16) will be reported separately. Reference is made to the patient's cervical biopsy at 5 o'clock from 08/10/19 ([id number]) in which mild and focal moderate squamous dysplasia with HPV change was identified. Case has been reviewed in consultation with Dr. Camarillo who concurs with the above diagnosis. IDC:JOSUÉ MICROSCOPIC DESCRIPTION Slides are reviewed. GROSS DESCRIPTION A - Received in fixative is one container labeled with the patient's name and designated endocervical curettings. The specimen consists of multiple irregular fragments of light campbell soft tissue that in aggregate measure 0.5 x 0.3 x <0.1 cm. The specimen is totally submitted in one cassette. B - Received in fixative is one container labeled with the patient's name and designated cervix. The specimen consists of three irregular fragments of campbell tissue ranging in size from 0.7 to 2 cm. No gross lesions are identified. The fragments are inked, sectioned and totally submitted in three cassettes. / AM:princess 08/29/19 TC:5 CPT: 19670, 08386
--- NOTE | 2019-08-28 | IMM_PTH ---
PATIENT: SALUD THOMAS [place] [facility] [id number] AGE/SX: 23/F ROOM: RE08/28/[address]: Dr. Cassie Jamison MD : 1995 BED: DIS: 08/28/2019 SPEC #: [id number] RECD: 08/30/19 12:42 STATUS: CHACHO REQ #: [id number] SHEA: 08/28/19 00:[address]: Cassie Jamison DEPT: IMMUNOHISTOCHEMISTRY RECD BY: Michelle Hogan ENTERED: 08/30/19 12:43 SP TYPE: IMMUNO OTHR DR: Dr. Salud Ramírez MD Tissues: B - Uterine cervix, NOS Procedures: p16 (initial) KI-67 (add) P16 (add) PHYSICIAN & INSTITUTION [place] [id number] SPECIMEN INFORMATION: Tissue Source: B - Cervix from [facility] Clinical Info: HGSIL Specimen Number: [id number] B1 & B3 CPT code: 37515, 17866 x3 METHODOLOGY: Deparaffinized sections of prefer/formalin-fixed tissue or PAP/DQ stained slides are incubated with monoclonal/polyclonal antibodies/oligonucleotide probes. Localization is made via biotin free immunoperoxidase method. Appropriate controls are performed and reacted as expected. Results on target cell population are indicated in the following table: RESULTS: ANTIBODY / CLONE RESULT Block B1 P16 (E6H4) positive, focal, block-like Ki-67 (30-9) positive, moderate Block B3 P16 (E6H4) positive, focal, block-like Ki-67 (30-9) positive, moderate These tests were developed and their performance characteristics determined by [facility]. They may not have been cleared or approved by the U.S. Food and Drug Administration. The FDA has determined that such clearance or approval is not necessary. The above immunohistochemical/dualISH markers are ordered and reviewed by the Pathologist. INTERPRETATION: B. Cervix from LEEP: Focal mild to moderate squamous dysplasia, JACE I-II (HSIL). AM:princess 09/03/19 Case has been reviewed in consultation with Dr. Camarillo who concurs with the above diagnosis. IDC:JOSUÉ
[2019-08-28 10:22] LABS: Internal QC Validated? YES +Cl - CLEAR BKGD; Pregnancy, Urine Negative Negative
[2019-08-28 10:28] LABS: Hematocrit 39.4 % (37-47); Hemoglobin 12.8 g/dL (12.0-15.0); Mean Corp Hgb Conc 32.5 g/dL (32-36); Mean Corpuscular Hgb 30.1 pg (27.0-32.0); Mean Corpuscular Volume 92.7 fL (81-99); Mean Platelet Vol. 9.7 fl (6.2-12.0); Platelet Count 335 K/mm3 (150-450); RBC Distribution Width CV 12.3 % (11.6-14.6); RBC Distribution Width SD 41.3 fl (35.1-43.9); Red Blood Count 4.25 M/mm3 (4.2-5.4); White Blood Count 7.6 K/mm3 (4.4-11.0)
[2019-08-28] MEDS: Lactated Ringers 1,000 ML 125 ML IV (10:36)
--- NOTE | 2019-08-28 12:11 | OP.PCM_ITS ---
Problem List (1) Chlamydia infection affecting Status: Acute Comment: treated 11/14/18. JACKY neg. (2) Depression affecting Status: Acute Comment: zoloft 100mg, refer for counseling. (3) High grade squamous intraepithelial lesion (HGSIL) on cytologic smear of cervix Status: Acute Comment: colp scheduled 08/07. biopsies done plan LEEP (4) Low grade squamous intraepithelial lesion (LGSIL) Status: Acute Comment: repeat pap at [facility] (5) Obesity affecting Status: Acute Qualifiers: Comment: 1 hour glucola given at [facility], healthy weight ggain encouraged (6) Status: Acute Qualifiers: Comment: NIPT-low risk and Carrier- negative. declined afp. anatomy US normal (7) Supervision of normal Status: Acute Qualifiers: Comment: PRR RAMON 06/06/2019 girl Susi ORDONEZ not involved Report of Operation Date of Procedure: 08/28/19 Pre-Operative Diagnosis: JACE-3 Post-Operative Diagnosis: same Surgery/Procedure Performed:: LEEP Description of Surgical Findings:: jace III Type of Anesthesia:: Local MAC Special Medications: monsels Specimen's removed: Cervix and endocervical curettings Drains: none Estimated Blood Loss (mL): 25 Fluids Replaced: Crystalloid Description of Procedure: Patient was taken to the operating room and placed under MAC anesthesia prepped and draped in normal sterile fashion the dorsal lithotomy position. Paracervical block was placed with 1% lidocaine and using a loop electrode the outer part of the cervix was removed including the squamocolumnar junction. Endocervical curettings were taken and the base of the cervix was cauterized around the borders and the base to obtain excellent hemostasis. Monsel's paste was placed and patient was awoken and taken recovery in stable condition. Grafts/Implants Used: none - Complications none Multi Select Codes - Urinary/Genital Urinary/Genital CPT Codes: 84662 Endocervical curettage, 59186 LEEP
--- NOTE | 2019-08-28 12:13 | PCM.DC.D&C ---
Discharge Diet: No Restrictions Discharge Activity: Return to Normal Activity, May Shower, May Take a Tub Bath Allergies/Adverse Reactions: Allergies amoxicillin [From Augmentin] Allergy (Mild, Verified 08/21/19 13:02) Rash clavulanic acid [From Augmentin] Allergy (Mild, Verified 08/21/19 13:02) Rash Medications to take at Discharge Sertraline HCl [Zoloft] 100 mg PO QDAY 05/15/19 Multivitamin [Multivitamins] 1 ea PO DAILY 08/21/19 Naproxen [Naprosyn] 250 - 500 mg PO Q8H PRN PRN #30 tab 08/28/19 The following prescriptions were given: Naproxen [Naprosyn] 250 - 500 mg PO Q8H PRN PRN #30 tab PRN Reason: MILD PAIN Transmission Status: Pending to [id number] Primary Care Physician: Salud Ramírez MD [Primary Care Provider] - Test Results: Test results from this visit will be discussed in further detail at your follow-up appointment, if applicable. Please Follow Up With: Cassie Jamison MD - [phone]
[2019-08-28] MEDS: FERRIC SUBSULFATE 8 GM SOLN (12:22)
[2019-08-28] MEDS: HYDROcodone Bitartrate/Apap 5/325 Tablet PO (13:27)
== END 2019-08-28 14:02 | disposition home or self-care (01) ==
LOC: SDC 09:55 → AC 09:57
PROVIDERS: Anesthesiology; PCP Family Medicine; Referring Provider Obstetrics & Gynecology; Visit Provider Obstetrics & Gynecology
PROC: 0UBC7ZZ Excision of Cervix, Via Natural or Artificial Opening (ICD-10-PCS; CPT 57522; principal; 2019-08-28 11:15)
DX: N87.1 Moderate cervical dysplasia (principal); Z87.891 Personal history of nicotine dependence; Z88.0 Allergy status to penicillin; Z88.1 Allergy status to other antibiotic agents; F32.9 Major depressive disorder, single episode, unspecified; F41.9 Anxiety disorder, unspecified; Z11.59 Encounter for screening for other viral diseases
CPT/HCPCS: 00940; 57522; 81025; 85027; 86850; 86900; 86901; 87635; 88305; 88307; 88341; 88342; G2023; J7120; J2405; U0003